=== PATIENT | male | born 1980 | race Caucasian/White ===

== ENCOUNTER 2019-01-10 07:53 | Emergency (ER) | payer BC ==
--- NOTE | 2019-01-10 08:09 | EDM.PDOC ---
ED HPI GENERAL MEDICAL PROBLEM - General Chief Complaint: Bite:Animal, Insect Stated Complaint: CAT BITE ON LEFT HAND Time Seen by Provider: 01/10/19 08:05 Source of Information: Reports: Patient History Limitations: Reports: No Limitations - History of Present Illness INITIAL COMMENTS - FREE TEXT/NARRATIVE: HISTORY AND PHYSICAL: History of present illness: Patient is a 38-year-old male who presents to the emergency room with complaints of a cat bite to his left hand. Patient states he was playing with the house cat when the cat had bitten his left hand last evening. The area is now reddened and painful to touch. States he clenched his fists and did have pus coming from the site. Patient's tetanus is up-to-date. The cat is up-to- date on its immunizations. Patient denies any fever, chills, headache, change in vision, syncope or near syncope. Denies any chest pain, back pain, shortness of breath or cough. Denies any GI or symptoms. Patient has been eating and drinking appropriately. Review of systems: As per history of present illness and below otherwise all systems reviewed and negative. Past medical history: As per history of present illness and as reviewed below otherwise noncontributory. Surgical history: As per history of present illness and as reviewed below otherwise noncontributory. Social history: See social history for further information Family history: As per history of present illness and as reviewed below otherwise noncontributory. Physical exam: General: Well-developed and well-nourished 38-year-old male. Alert and oriented. Nontoxic appearing and in no acute distress. HEENT: Atraumatic, normocephalic, pupils equal and reactive bilaterally, negative for conjunctival pallor or scleral icterus, mucous membranes moist, trachea midline. No drooling or trismus noted. No meningeal signs. No hot potato voice noted. Lungs: Clear to auscultation, breath sounds equal bilaterally. Heart: S1S2, regular rate and rhythm without overt murmur Abdomen: Soft, nondistended, nontender. Skin: Superficial laceration/abrasion noted to the web space between the first and second digit on the dorsal aspect of the left hand. Mild surrounding erythema. No current drainage noted. Otherwise skin is intact, warm, dry. No lesions or rashes noted. Extremities: See skin for details, moves all extremities per self without difficulty or deficits. Neurovascular unremarkable. Neuro: Awake, alert, oriented. Cranial nerves II through XII unremarkable. Cerebellum unremarkable. Motor and sensory unremarkable throughout. Exam nonfocal. Notes: I did offer some limited pain medication for home, he declines. We discussed signs and symptoms that would prompt him to return to the emergency room. He'll start his oral antibiotics and keep a close eye on the catbite. Supportive care measures were reviewed and discussed. Voices understanding and is agreeable to plan of care. Denies any further questions or concerns at this time. Diagnostics: None Therapeutics: None Prescription: Augmentin Impression: Animal Bite Plan: 1. Rest, ice, elevate. Keep the area clean and dry. Continue to monitor for signs of infection. Take the antibiotic as directed. 2. Tylenol and/or ibuprofen as needed for pain management. 3. Please follow-up with your primary care provider in the next 1-2 days. Return to the ED as needed and as discussed. Definitive disposition and diagnosis as appropriate pending reevaluation and review of above. Left Hand Pain Score (Numeric/FACES): 4 - Related Data Allergies Allergy/AdvReac Type Severity Reaction Status Date / Time No Known Allergies Allergy Verified 01/10/19 08:06 Home Meds: Home Meds Amoxicillin/Clavulanate K [Augmentin 875-125 MG] 1 tab PO BID 10 Days #20 tablet 01/10/19 [Rx] ED ROS GENERAL - Review of Systems Review Of Systems: ROS reveals no pertinent complaints other than HPI. ED EXAM, ANIMAL BITE - Physical Exam Exam: See Below (See dictation) Course - Vital Signs Last Recorded V/S: Last Vital Signs Temp 97.3 F 01/10/19 08:10 Pulse 66 01/10/19 08:10 Resp 16 01/10/19 08:10 BP 132/91 H 01/10/19 08:10 Pulse Ox 97 01/10/19 08:10 - Orders/Labs/Meds Orders: Active Orders 24 hr Category Date Time Status Communication Order [RC] STAT Care 01/10/19 08:10 Active Meds: Medications Discontinued Medications Generic Name Dose Route Start Last Admin Trade Name Freq PRN Reason Stop Dose Admin Bacitracin 1 dose 01/10/19 08:10 Bacitracin Oint 1 Gm TOP 01/10/19 08:11 ONETIME ONE Departure - Departure Time of Disposition: 08:09 Disposition: Home, Self-Care 01 Clinical Impression: Animal bite of hand Qualifiers: Encounter type: initial encounter Laterality: left Qualified Code(s): S61.452A - Open bite of left hand, initial encounter - Discharge Information Prescriptions: Amoxicillin/Clavulanate K [Augmentin 875-125 MG] 1 tab PO BID 10 Days #20 tablet Instructions: Animal Bite, Adult, [id number] Referrals: PCP,None [Primary Care Provider] - Forms: ED Department Discharge Additional Instructions: The following information is given to patients seen in the emergency department who are being discharged to home. This information is to outline your options for follow-up care. We provide all patients seen in our emergency department with a follow-up referral. The need for follow-up, as well as the timing and circumstances, are variable depending upon the specifics of your emergency department visit. If you don't have a primary care physician on staff, we will provide you with a referral. We always advise you to contact your personal physician following an emergency department visit to inform them of the circumstance of the visit and for follow-up with them and/or the need for any referrals to a consulting specialist. The emergency department will also refer you to a specialist when appropriate. This referral assures that you have the opportunity for follow-up care with a specialist. All of these measure are taken in an effort to provide you with optimal care, which includes your follow-up. Under all circumstances we always encourage you to contact your private physician who remains a resource for coordinating your care. When calling for follow-up care, please make the office aware that this follow-up is from your recent emergency room visit. If for any reason you are refused follow-up, please contact the [facility] Emergency Department at and asked to speak to the emergency department charge nurse. [facility] [address] [place] [address] [id number] [address] [address] 1. Rest, ice, elevate. Keep the area clean and dry. Continue to monitor for signs of infection. Take the antibiotic as directed. 2. Tylenol and/or ibuprofen as needed for pain management. 3. Please follow-up with your primary care provider in the next 1-2 days. Return to the ED as needed and as discussed. - My Orders Last 24 Hours: My Active Orders 01/10/19 08:10 Communication Order [RC] STAT - Assessment/Plan Last 24 Hours: My Active Orders 01/10/19 08:10 Communication Order [RC] STAT
[2019-01-10] MEDS ORDERED: Bacitracin Oint 1 GM U/D Packet TOP ONE (08:10)
== END 2019-01-10 08:36 | disposition home or self-care (01) ==
LOC: MW.ED 07:53
DX: S61.452A Open bite of left hand, initial encounter (principal); W55.01XA Bitten by cat, initial encounter; Y93.89 Activity, other specified
CPT/HCPCS: 99283

== ENCOUNTER 2019-05-28 17:53 | Emergency (ER) | payer BC ==
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
== END 2019-05-28 20:00 | disposition home or self-care (01) ==
LOC: MW.ED 17:53
DX: M25.512 Pain in left shoulder (principal); F17.210 Nicotine dependence, cigarettes, uncomplicated
CPT/HCPCS: 73000-26-LT; 73000-LT; 73030-26-LT; 73030-LT; 99283

== ENCOUNTER 2019-10-18 10:35 | Emergency (ER) | payer BC ==
[2019-10-18] MEDS ORDERED: Sodium Chloride 0.9% 1,000 ML IV ONE (11:01)
[2019-10-18] MEDS ORDERED: Ondansetron 4 MG/2 ML SDV IVPUSH ONE (11:05)
[2019-10-18] MEDS ORDERED: Ketorolac 30 MG/ML SDV IVPUSH ONE (11:05)
[2019-10-18] MEDS ORDERED: diphenhydrAMINE 50 MG/ML SDV IVPUSH ONE (11:05)
--- NOTE | 2019-10-18 11:15 | EDM.PDOC ---
ED HPI GENERAL MEDICAL PROBLEM - General Chief Complaint: Headache Time Seen by Provider: 10/18/19 10:49 Source of Information: Reports: Patient History Limitations: Reports: No Limitations - History of Present Illness INITIAL COMMENTS - FREE TEXT/NARRATIVE: Presents reporting cluster headache. Patient states he has had cluster headaches off and on for 18 years. They are seasonal. He has regular visits with his medical provider. This time the headache seems to be intractable although it is his usual pattern with pain starting just above his right eye and following around his ear to the occiput. It is accompanied by light sensitivity, sound sensitivity, and nausea. Denies facial or sinus fullness, postnasal drip, cough, sore throat, ear fullness, fever, focal weakness or shortness of breath. headache Pain Score (Numeric/FACES): 10 - Related Data Allergies Allergy/AdvReac Type Severity Reaction Status Date / Time No Known Allergies Allergy Verified 10/18/19 10:49 Home Meds: Home Meds . [No Known Home Meds] 05/28/19 [History] Past Medical History - Past Health History Medical/Surgical History: Denies Medical/Surgical History - Infectious Disease History Infectious Disease History: Reports: Chicken Pox - Past Surgical History Other HEENT Surgeries/Procedures: nasal surgery Musculoskeletal Surgical History: Reports: Other (See Below) Other Musculoskeletal Surgeries/Procedures:: ankle surgery, leg surgery Social & Family History - Family History Family Medical History: Noncontributory - Tobacco Use Smoking Status *Q: Current Status Unknown Years of Tobacco use: 5 Packs/Tins Daily: 0.2 - Caffeine Use Caffeine Use: Reports: Coffee - Recreational Drug Use Recreational Drug Use: No ED ROS GENERAL - Review of Systems Review Of Systems: Comprehensive ROS is negative, except as noted in HPI. - Physical Exam Exam: See Below Exam Limited By: No Limitations General Appearance: Alert, Mild Distress (due to Headache) Nose: Normal Inspection Throat/Mouth: Normal Inspection Head Exam: Atraumatic, Normocephalic Neck: Normal Inspection Respiratory/Chest: No Respiratory Distress, Lungs Clear, Normal Breath Sounds Cardiovascular: Normal Peripheral Pulses GI/Abdominal: Soft Neuro Exam (Abbreviated): Alert, Oriented Back Exam: Normal Inspection Extremities: Normal Inspection Psychiatric: Normal Affect, Normal Mood Skin Exam: Warm, Dry, Intact, Normal Color, No Rash Course - Vital Signs Last Recorded V/S: Last Vital Signs Temp 35.4 C L 08/11/20 10:47 Pulse 72 10/18/19 10:47 Resp 20 10/18/19 10:47 BP 146/97 H 10/18/19 10:47 Pulse Ox 95 10/18/19 10:47 - Orders/Labs/Meds Orders: Active Orders 24 hr Category Date Time Status Oxygen Therapy, ED [RC] ASDIRECTED Care 10/18/19 11:06 Ordered Meds: Medications Discontinued Medications Generic Name Dose Route Start Last Admin Trade Name Stephanie PRN Reason Stop Dose Admin Diphenhydramine HCl 50 mg 10/18/19 11:05 10/18/19 11:28 Benadryl IVPUSH 10/18/19 11:06 50 mg ONETIME ONE Administration Sodium Chloride 1,000 mls @ 999 mls/hr 10/18/19 11:01 10/18/19 11:27 Normal Saline IV 10/18/19 12:01 999 mls/hr STAT ONE Administration Ketorolac Tromethamine 30 mg 10/18/19 11:05 10/18/19 11:28 Toradol IVPUSH 10/18/19 11:06 30 mg ONETIME ONE Administration Ondansetron HCl 4 mg 10/18/19 11:05 10/18/19 11:28 Zofran IVPUSH 10/18/19 11:06 4 mg ONETIME ONE Administration - Re-Assessments/Exams Free Text/Narrative Re-Assessment/Exam: 10/18/19 11:49 Headache much improved. Free Text/Narrative Re-Assessment/Exam: 10/18/19 12:31 Headache is gone and patient is ready for discharge Departure - Departure Time of Disposition: 12:32 Disposition: Home, Self-Care 01 Condition: Good Clinical Impression: Cluster headache Qualifiers: Headache chronicity pattern: chronic headache Intractability: not intractable Qualified Code(s): G44.029 - Chronic cluster headache, not intractable - Discharge Information Referrals: Tashi Bull MD [Primary Care Provider] - Gladys Palma MD [Physician] - Forms: ED Department Discharge Additional Instructions: The following information is given to patients seen in the emergency department who are being discharged to home. This information is to outline your options for follow-up care. We provide all patients seen in our emergency department with a follow-up referral. The need for follow-up, as well as the timing and circumstances, are variable depending upon the specifics of your emergency department visit. If you don't have a primary care physician on staff, we will provide you with a referral. We always advise you to contact your personal physician following an emergency department visit to inform them of the circumstance of the visit and for follow-up with them and/or the need for any referrals to a consulting specialist. The emergency department will also refer you to a specialist when appropriate. This referral assures that you have the opportunity for follow-up care with a specialist. All of these measure are taken in an effort to provide you with optimal care, which includes your follow-up. Under all circumstances we always encourage you to contact your private physician who remains a resource for coordinating your care. When calling for follow-up care, please make the office aware that this follow-up is from your recent emergency room visit. If for any reason you are refused follow-up, please contact the [facility] Emergency Department at and asked to speak to the emergency department charge nurse. 1. Follow-up with neurology by calling for an appointment at the number listed above. Sepsis Event Note (ED) - Evaluation Sepsis Screening Result: No Definite Risk - Focused Exam Vital Signs: Vital Signs Temp Pulse Resp BP Pulse Ox 10/18/19 10:47 35.4 C L 72 20 146/97 H 95 - My Orders Last 24 Hours: My Active Orders 10/18/19 11:06 Oxygen Therapy, ED [RC] ASDIRECTED - Assessment/Plan Last 24 Hours: My Active Orders 10/18/19 11:06 Oxygen Therapy, ED [RC] ASDIRECTED
== END 2019-10-18 12:45 | disposition home or self-care (01) ==
LOC: MW.ED 10:35
DX: G44.029 Chronic cluster headache, not intractable (principal); F17.210 Nicotine dependence, cigarettes, uncomplicated
CPT/HCPCS: 96374; 96375; 99283; J1200; J1885; J2405; J7030

== ENCOUNTER 2024-06-27 14:40 | Emergency (ER) | payer BC ==
[2024-06-27] MEDS: Morphine 4 MG/ML Syringe IVPUSH ONE ×2 (14:51→15:38)
[2024-06-27] MEDS: Sodium Chloride 0.9% 1,000 ML IV ONE (14:51)
[2024-06-27] MEDS: Alum Hydrox/Mag Hydrox/Simeth 15 ML, Lidocaine 2% 5 ML PO ONE (14:51)
[2024-06-27] MEDS: Ondansetron 4 MG/2 ML SDV IVPUSH ONE (14:51)
[2024-06-27 14:52] LABS: BASOPHILS ABSOLUTE AUTO 0.03 K/uL (0.00-0.20); BASOPHILS PERCENT AUTO 0.4 % (0.0-1.0); EOSINOPHILS ABSOLUTE AUTO 0.18 K/uL (0.00-0.45); EOSINOPHILS PERCENT AUTO 2.2 % (0.0-6.0); HEMATOCRIT 53.7 % (42.0-52.0); HEMOGLOBIN 17.7 g/dL (14.0-18.0); IMMATURE GRAN ABSOLUTE AUTO 0.02 K/uL (0.00-0.05); IMMATURE GRAN PERCENT AUTO 0.2 % (0.0-0.4); LYMPHOCYTES ABSOLUTE AUTO 2.75 K/uL (1.00-4.80); LYMPHOCYTES PERCENT AUTO 33.5 % (24.0-44.0); MEAN CORPUSCULAR HEMOGLOBIN 28.3 pg (28.0-32.0); MEAN CORPUSCULAR VOLUME 85.8 fL (83.0-99.0); MEAN PLATELET VOLUME 8.8 fL (9.4-12.4); MONOCYTES ABSOLUTE AUTO 0.58 K/uL (0.00-0.80); MONOCYTES PERCENT AUTO 7.1 % (0.0-8.0); NEUTROPHILS ABSOLUTE AUTO 4.66 K/uL (1.80-7.70); NEUTROPHILS PERCENT AUTO 56.6 % (41.0-71.0); PLATELET COUNT,PLT 183 K/uL (150-400); RED BLOOD CELL COUNT 6.26 M/uL (4.52-5.90); WHITE BLOOD CELL COUNT,WBC 8.22 K/uL (3.9-11.3)
[2024-06-27 15:05] LABS: INR 1.13 (0.86-1.11)
[2024-06-27] MEDS: Iopamidol 755 MG/ML 500 ML Multipack Bottle IVPUSH STA (15:14)
[2024-06-27 15:20] LABS: ALBUMIN 3.5 g/dL (3.4-5.0); BILIRUBIN TOTAL 0.5 mg/dL (0.2-1.0); CALCIUM 8.4 mg/dL (8.5-10.1); CREATININE 1.7 mg/dL (0.8-1.3); EST CRCL DRUG DOSING (CG) 70.61 mL/min; MAGNESIUM 1.9 mg/dL (1.8-2.4); POTASSIUM,K 3.5 mmol/L (3.5-5.1); PROTEIN TOTAL,TP 7.1 g/dL (6.4-8.2)
[2024-06-27] MEDS ORDERED: Esmolol 100 MG/10 ML SDV IV STA (15:34)
[2024-06-27] MEDS: niCARdipine/Normal Saline 20 MG in Premix Bag 1 BAG IV SCH (15:38)
[2024-06-27] MEDS: Labetalol 100 MG/20 ML MDV IVPUSH ONE (15:38)
[2024-06-27] MEDS: Esmolol 100 MG/10 ML SDV IV STA (15:50)
[2024-06-27] MEDS: Esmolol/Normal Saline 2,500 MG/250 ML BAG IV SCH (15:58)
== END 2024-06-27 16:30 ==
LOC: MW.ED 14:40
DX: I71.010 Dissection of ascending aorta (principal); Z75.8 Other problems related to medical facilities and other health care
CPT/HCPCS: 36415; 36430; 71045; 71275; 80053; 83690; 83735; 83880; 84484; 85025; 85610; 85730; 86850; 86900; 86901; 86920; 93005; 96361; 96365; 96368; 96375; 96376; 99285; A9270; J1805; J1920; J2270; J2405; J7030; Q9967; 93010; J3490